=== PATIENT | male | born 1960 | race African-American/Black ===

== ENCOUNTER 2021-05-23 01:58 | Emergency (ER) | payer OTHER ==
[~2021-05-23] VITALS: Ht 188 cm; Wt 109.1 kg
--- NOTE | 2021-05-23 02:20 | EKG ---
[facility] [address] [place] [address] Test Date: 2021-05-23 Test Time: 02:06:36 Pat Name: CHERYL MOHAN Department: Room: Gender: M Predictive Maintenance Specialist: : 1960 Requested By: LONNIE KNIGHT Order Number: [id number] Reading MD: Sumit Uribe Measurements Intervals [place] Rate: 3 P: 0 RI: 0 QRS: 0 QRSD: 0 T: 0 QT: 0 QTc: 0 Interpretive Statements UNUSABLE ECG RI6.02 No previous ECG available for comparison Electronically Signed On 05-23-2021 10:01:31 CARPENTER ASSEMBLER by Sumit Uribe
--- NOTE | 2021-05-23 02:24 | PHYS DOC ---
Past Medical History Past Medical History: Diabetes-Type II, Hypertension Past Surgical History: No Surgical History Smoking Status: Never Smoker Alcohol Use: Occasionally Drug Use: None General Adult EDM: Chief Complaint: UPPER EXTREMITY PAIN HPI: HPI: Patient is a 61 year old male with hx of DM and HTN here for left forearm pain that started approximately 2 hours ago. Patient states pain was a cramping sensation that started on the medial elbow and radiated to his forearm. His pain subsided after he was given IVF with LR by EMS and states it is just sore now. He denies chest pain and shortness of breath. Patient does report that he has felt similar sensation in his legs before but never in his upper extremities. Denies fever/chills. Denies trauma. Reports he did drink 1 shot of alcohol tonight. Denies chronic alcoholism. Review of Systems: Review of Systems: Constitutional: Denies fever or chills Eyes: Denies redness or eye pain HENT: Denies nasal congestion or sore throat Respiratory: Denies cough or shortness of breath Cardiovascular: Denies chest pain or palpitations GI: Denies abdominal pain, nausea, or vomiting : Denies dysuria or hematuria Musculoskeletal: Denies back pain or joint pain; reports forearm pain Integument: Denies rash or skin lesions Neurologic: Denies headache, focal weakness or sensory changes Complete systems were reviewed and found to be within normal limits, except as documented in this note. Heart Score: C/O Chest Pain: No HEART Score for Chest Pain: HEART Score for Chest Pain Response (Comments) Value History Slighlty/Non-Suspicious 0 ECG Nonspecific Repolarizatio 1 Age >45 - < 65 1 Risk Factors 1 or 2 Risk Factors 1 Total 3 Risk Factors: Risk Factors: DM, Current or recent (<one month) smoker, HTN, HLP, family history of CAD, obesity. Risk Scores: Score 0 - 3: 2.5% MACE over next 6 weeks - Discharge Home Score 4 - 6: 20.3% MACE over next 6 weeks - Admit for Clinical Observation Score 7 - 10: 72.7% MACE over next 6 weeks - Early Invasive Strategies Current Medications: Current Medications Medications (Trade) Dose Ordered Sig/Jason Start Time Stop Time Status Last Admin Dose Admin Aspirin (Mariela Aspirin) 325 mg 1X ONCE 05/23/21 02:30 05/23/21 02:31 Sodium Chloride 1,000 ml @ 1,000 mls/hr 1X ONCE 05/23/21 02:30 05/23/21 03:29 Allergies: Allergies: Allergies Coded Allergies Type Severity Reaction Last Updated Verified No Known Drug Allergies 05/23/21 No Physical Exam: PE: Constitutional: Well developed, well nourished, mild distress, non-toxic appearance HENT: Normocephalic, atraumatic Eyes: Conjunctiva normal, no discharge Neck: Normal range of motion, supple Lungs & Thorax: No respiratory distress, equal chest rise and fall Abdomen: Soft, no tenderness Skin: Warm, dry, no erythema, no rash Extremities: Left forearm without tenderness on palpation, ROM intact, no edema, left radial pulse +2, CR < 2 sec Neurologic: Alert and oriented X 3, normal motor function, normal sensory function, no focal deficits noted Psychologic: Affect normal, judgment normal EKG: EKG: @0215 normal sinus rhythm at 91bpm . ST/J point elevations at V2-V3 no r eciprocal depressions noted. QRS 90 ms QT 336 ms QTC 415 ms. compared to EMS transmission at 0136 no prior EKG per [employer] for comparison. @0532 normal sinus rhythm at [address]/J point elevations at V2-V3 no reciprocal depressions noted QRS 88 ms QT 336 ms QTC 415 ms Radiology/Procedures: Radiology/Procedures: PROCEDURE: PORTABLE CHEST 1V EXAM: AP View of the chest DATE: 05/23/2021 2:19 AM INDICATION: Reason: abnormal EKG / Spl. Instructions: / History: COMPARISON: No Prior FINDINGS: The heart is not enlarged. Mediastinal and hilar contours are normal. Left lung base airspace opacities likely consolidative process as pneumonia. No pleural effusion or pneumothorax. IMPRESSION: Left lung base airspace opacities likely consolidative process such as pneumonia. Electronically signed by: Salty Rodriguez MD (05/23/2021 3:16 AM) EVER Course & Med Decision Making: Course & Med Decision Making Pertinent Lab and radiological studies reviewed. (See chart for details) 61 year old male with hx of DM and HTN presenting with left forearm pain for 2 hours. Patient denies chest pain and shortness of breath, although his EKGs show J point elevations at V2-V3 with no ST depressions. CXR image noted with poor inspiratory effort. Radiologist report shows left lung base airspace opacities likely consolidative process as pneumonia, however patient has no respiratory complaints. Imaging likely atelectasis due to poor inspiratory effort. WBC also WNL. EKG x 2 stable. Troponin x 2 negative. Patient with improvement of symptoms with IVF hydration. Glucose elevated. Insulin provided. Patient stable for discharge with outpatient follow-up with PCP. Discussed findings and plan with patient, who acknowledges understanding and agreement. Griselda Disclaimer: Griselda Disclaimer: This electronic medical record was generated, in whole or in part, using a voice recognition dictation system. Departure Departure Impression: Primary Impression: Left arm pain Additional Impression: Hyperglycemia Disposition: HOME / SELF CARE / HOMELESS Condition: STABLE Patient Instructions: Diet - 2000 Calorie Diabetic, Hyperglycemia, Easy-to-Re ad, Muscle Strain, [id number] Additional Instructions: Increase fluid hydration. Please follow diabetic diet and take your diabetes medication as directed. LONNIE KNIGHT DO May 23, 2021 02:24
[2021-05-23] MEDS ORDERED: IV NORMAL SALINE 1000ML BAG 1,000 ML IV ONE (02:30)
[2021-05-23] MEDS ORDERED: ASPIRIN 325 MG TABLET PO ONE (02:30)
--- NOTE | 2021-05-23 03:18 | RAD ---
EXAM: AP View of the chest DATE: 05/23/2021 2:19 AM INDICATION: Reason: abnormal EKG / Spl. Instructions: / History: COMPARISON: No Prior FINDINGS: The heart is not enlarged. Mediastinal and hilar contours are normal. Left lung base airspace opacities likely consolidative process as pneumonia. No pleural effusion or pneumothorax. IMPRESSION: Left lung base airspace opacities likely consolidative process such as pneumonia. Electronically signed by: Salty Rodriguez MD (05/23/2021 3:16 AM) EVER
[2021-05-23 03:29] LABS: BARBITURATES NEG (NEG); BENZODIAZEPINES NEG (NEG); CANNABINOIDS NEG (NEG); COCAINE NEG (NEG); METHADONE NEG (NEG); OPIATES NEG (NEG); PHENCYCLIDINE NEG (NEG)
[2021-05-23 03:31] LABS: AMPHETAMINE/METHAMPHETAMINE NEG (NEG)
--- NOTE | 2021-05-23 03:42 | EKG ---
[facility] [address] [place] [address] Test Date: 2021-05-23 Test Time: 02:11:09 Pat Name: CHERYL MOHAN Department: Room: Gender: M Behaviorist: : 1960 Requested By: LONNIE KNIGHT Order Number: [id number] Reading MD: Sumit Uribe Measurements Intervals [place] Rate: 91 P: 34 CT: 204 QRS: -22 QRSD: 90 T: 53 QT: 336 QTc: 415 Interpretive Statements SINUS RHYTHM LEFTWARD AXIS Electronically Signed On 05-23-2021 10:00:50 WAXER FLOOR by Sumit Uribe
[2021-05-23 04:42] LABS: BASO % 0 % (0-3); EOS % 0 % (0-3); HEMATOCRIT 38.7 % (39.0-53.0); HEMOGLOBIN 13.3 g/dL (13.0-17.5); LYMPH # 0.7 x10^3/uL (1.0-4.8); LYMPH % 13 % (24-48); MEAN CORPUSCULAR HEMOGLOBIN 31 pg (25-35); MEAN CORPUSCULAR HGB CONC 35 g/dL (31-37); MEAN CORPUSCULAR VOLUME 89 fL (79-100); MONO # 0.3 x10^3/uL (0.0-1.1); MONO % 6 % (0-9); NEUT # 4.2 x10^3/uL (1.8-7.7); NEUT % 80 % (31-73); PLATELET COUNT 210 x10^3/uL (140-400); RED BLOOD COUNT 4.34 x10^6/uL (4.30-5.70); RED CELL DISTRIBUTION WIDTH 13.4 % (11.5-14.5); WHITE BLOOD COUNT 5.3 x10^3/uL (4.0-11.0)
[2021-05-23 04:52] LABS: CALCIUM 8.3 mg/dL (8.5-10.1); CREATININE 1.2 mg/dL (0.7-1.3); GFR 74.2; POTASSIUM 4.4 mmol/L (3.5-5.1)
[2021-05-23 04:59] LABS: ALBUMIN 2.9 g/dL (3.4-5.0); ALBUMIN/GLOBULIN RATIO 0.9 (1.0-1.7); TOTAL BILIRUBIN 0.3 mg/dL (0.2-1.0)
[2021-05-23] MEDS ORDERED: INSULIN REGULAR 100 UNIT/ML 3ML VIAL. SQ ONE (05:30)
[2021-05-23 06:33] VITALS: BP 127/77
--- NOTE | 2021-05-25 20:59 | EKG ---
[facility] [address] [place] [address] Test Date: 2021-05-23 Test Time: 05:29:32 Pat Name: CHERYL MOHAN Department: Room: Gender: M Oracle Technical Developer: : 1960 Requested By: LONNIE KNIGHT Order Number: [id number] Reading MD: Sumit Uribe Measurements Intervals [place] Rate: 90 P: 38 CO: 202 QRS: -21 QRSD: 88 T: 13 QT: 336 QTc: 415 Interpretive Statements SINUS RHYTHM LEFTWARD AXIS Electronically Signed On 05-28-2021 14:38:06 LAUNDRY PRICING CLERK by Sumit Uribe
== END 2021-05-23 06:46 | disposition home or self-care (01) ==
LOC: ER 01:58
DX: M79.632 Pain in left forearm (principal); E11.65 Type 2 diabetes mellitus with hyperglycemia; I10 Essential (primary) hypertension
CPT/HCPCS: 36415; 71045; 80053; 80307; 82553; 82962; 83690; 83735; 83880; 84484; 85025; 93005; 96360; 96361; 96372; 99285; G0480; J1815; J7030

== ENCOUNTER → 2021-08-24 | Outpatient (CLI) | payer OTHER ==
--- NOTE | 2021-08-24 15:06 | RAD ---
EXAMINATION: US RIGHT LOWER EXTREMITY ARTERIAL DUPLEX EVAL. HISTORY: 61 years Male Reason: Non healing Diabetic Foot Ulcer Ball of foot under 5th digit , perip heral arterial disease COMPARISON: None. FINDINGS: Mild atherosclerotic plaque is seen in the grayscale images in the femoropopliteal segments. Triphasi c waveforms are from seen from the common femoral to dorsalis pedis and posterior tibial arteries on the right side. Color Doppler demonstrate patency with normal velocities seen from the common femoral to dorsalis pedis and posterior tibial arteries. IMPRESSION: Mild atherosclerotic plaque with no evidence of high-grade stenosis in the right lower extremity quinn adrianna. Electronically signed by: Lisandro Burnett MD (08/24/2021 3:03 PM) [id number]
--- NOTE | 2021-08-24 15:08 | RAD ---
EXAMINATION: Upper and lower extremity pressure measurements of ankle/brachial index. INDICATION: Peripheral arterial disease, nonhealing right diabetic foot ulcer FINDINGS: The ankle/brachial index on the right side is 1.28, (1.28 PT, and 1.28 DP) and on the left is 1.29 (1.29 PT, and 1.2 DP). IMPRESSION: Normal DAVID, bilaterally. Electronically signed by: Lisandro Burnett MD (08/24/2021 3:05 PM) [id number]
== END ==
LOC: US 13:24
PROVIDERS: ATTEND Emergency Medicine Undersea and Hyperbaric Medicine
DX: I70.201 Unspecified atherosclerosis of native arteries of extremities, right leg (principal); E11.621 Type 2 diabetes mellitus with foot ulcer; L97.511 Non-pressure chronic ulcer of other part of right foot limited to breakdown of skin
CPT/HCPCS: 93922; 93926